=== PATIENT | male | born 1955 | race Caucasian/White ===

== ENCOUNTER 2017-03-28 08:31 | Day surgery (SDC) | payer BC, OTHER ==
[~2017-03-28 08:31] MED LIST: Lactated Ringers 1,000 ML IV SCH; Lidocaine 2% 5 ML SDV ONE; Propofol 200 MG/20 ML SDV ONE
--- NOTE | 2017-03-28 08:51 | PCM.PREANE ---
Preanesthetic Assessment - Anesthesia/Transfusion/Family Hx Anesthesia History: Prior Anesthesia Without Reaction Family History of Anesthesia Reaction: No Transfusion History: No Prior Transfusion(s) Intubation History: Unknown - Review of Systems General: No Symptoms Pulmonary: No Symptoms Cardiovascular: No Symptoms Gastrointestinal: Other (occasional constipation) Neurological: No Symptoms Other: Reports: None - Physical Assessment Height: 1.83 m Weight: 85.729 kg ASA Class: 1 Mental Status: Alert & Oriented x3 Airway Class: Mallampati = 2 Dentition: Reports: Normal Dentition Thyro-Mental Finger Breadths: 2 Mouth Opening Finger Breadths: 3 ROM/Head Extension: Full Lungs: Clear to Auscultation, Normal Respiratory Effort Cardiovascular: Regular Rate, Regular Rhythm - Allergies Allergies/Adverse Reactions: Allergies Allergy/AdvReac Type Severity Reaction Status Date / Time No Known Allergies Allergy Verified 03/25/17 09:06 - Blood Blood Available: No - Anesthesia Plan Pre-Op Medication Ordered: None - Acknowledgements Anesthesia Type Planned: MAC Pt an Appropriate Candidate for the Planned Anesthesia: Yes Alternatives and Risks of Anesthesia Discussed w Pt/Guardian: Yes Pt/Guardian Understands and Agrees with Anesthesia Plan: Yes PreAnesthesia Questionnaire Gastrointestinal History: Reports: None Musculoskeletal History: Reports: Fracture Other Musculoskeletal History: hx fx finger - Past Surgical History Head Surgeries/Procedures: Reports: None HEENT Surgical History: Reports: Tonsillectomy GI Surgical History: Reports: Colonoscopy (12 years ago- normal) - SUBSTANCE USE Smoking Status *Q: Never Smoker Recreational Drug Use History: No - HOME MEDS Home Medications: Home Meds Gluc 2KCl/Chondr/Joshua Hy/Hy Ac [Glucosamine & Chondroitin Cap] 1 tab PO DAILY [History] - CURRENT (IN HOUSE) MEDS Current Meds: Current Medications Lactated Ringer's (Ringers, Lactated) 1,000 mls @ 125 mls/hr IV ASDIRECTED DOMINGA Discontinued Medications Lidocaine (Xylocaine-Mpf 2%) Confirm Administered Dose 5 ml .ROUTE .STK-MED ONE Stop: 03/28/17 08:07 Propofol (Diprivan 20 Ml) Confirm Administered Dose 400 mg .ROUTE .STK-MED ONE Stop: 03/28/17 08:06
[2017-03-28] MEDS ORDERED: Propofol 200 MG/20 ML SDV ONE (09:33)
--- NOTE | 2017-03-28 09:53 | PCM.OPNOTE ---
- General Post-Op/Procedure Note Date of Surgery/Procedure: 03/28/17 Operative Procedure(s): Colonoscopy Pre Op Diagnosis: Desire for colorectal cancer screening. Family history of colon cancer. Post-Op Diagnosis: Minimal diverticulosis Anesthesia Technique: MAC (ASA I) Primary Surgeon: Alex Hopkins Condition: Good Free Text/Narrative:: Dictation [id number] CPT CODE 22240
[2017-03-28] MEDS ORDERED: Lactated Ringers 1,000 ML IV SCH (10:00)
--- NOTE | 2017-03-28 10:51 | OR ---
SURGEON: Alex Hopkins M.D. DATE OF PROCEDURE: 03/28/2017 OPERATION PERFORMED: Colonoscopy. ANESTHESIA: MAC. ASA CLASSIFICATION: I. PREOPERATIVE DIAGNOSIS: Desire for colorectal cancer screening. POSTOPERATIVE DIAGNOSIS: Mild diverticulosis. DESCRIPTION OF PROCEDURE: The patient was taken to the endoscopy room, positioned on the endoscopy table in the left lateral decubitus position. Time-out was called for appropriate identification of the patient and procedure. Monitored anesthesia care was provided. The colonoscope was inserted into the rectum and advanced with minimal difficulty to the cecum where the colonoscope was attempted to be retroflexed. Despite multiple maneuvers, we were not able to retroflex the colonoscope. The ascending colon did demonstrate a couple of small diverticula. Careful examination of the cecum, ascending colon, hepatic flexure, transverse colon, splenic flexure, descending colon, sigmoid colon, and rectum was able to be carried out. Other than a few small scattered diverticula, no other lesions were identified. Specifically, no polyps were encountered. There was no evidence of inflammatory bowel disease or ulcerative colitis. Once the colonoscope was withdrawn to the rectum, it was retroflexed to visualize the anal orifice from above. No tumors, polyps, or acute hemorrhoidal changes were noted. The colonoscope was then straightened, the rectum aspirated, and the colonoscope removed. The patient tolerated the procedure well and was taken to recovery room in stable condition. WING CASTRO /[id number]
== END 2017-03-28 10:25 | disposition home or self-care (01) ==
LOC: MW.SDS 08:31
PROVIDERS: ATTEND Surgery
DX: Z12.11 Encounter for screening for malignant neoplasm of colon (principal); K57.30 Diverticulosis of large intestine without perforation or abscess without bleeding; Z79.899 Other long term (current) drug therapy; Z80.0 Family history of malignant neoplasm of digestive organs; Z83.71 Family history of colonic polyps; Z87.891 Personal history of nicotine dependence; Z90.89 Acquired absence of other organs
CPT/HCPCS: 45378; J7120; J2704